=== PATIENT | female | born 1945 | race Two or more races ===

== ENCOUNTER 2017-12-28 09:56 | Outpatient (CLI) | payer MEDICARE, BC ==
[2017-12-28 11:12] LABS: CHOLESTEROL 175 mg/dL (<200); HDL CHOLESTEROL 57 mg/dL (40-60); LDL 103 mg/dL (0-99); TRIGLYCERIDES 105 mg/dL (30-150)
== END 2017-12-28 23:59 | disposition home or self-care (01) ==
LOC: CARD 09:56
PROVIDERS: ATTEND Internal Medicine Cardiovascular Disease
DX: I73.9 Peripheral vascular disease, unspecified (principal)
CPT/HCPCS: 36415; 80061-TC

== ENCOUNTER 2018-01-02 08:52 | Outpatient (CLI) | payer MEDICARE, BC ==
[2018-01-02 09:15] LABS: CALCIUM, SERUM 8.9 mg/dL (8.5-10.1); CARBON DIOXIDE 29 mmol/L (21-32); CHLORIDE 99 mmol/L (98-107); GLUCOSE 145 mg/dL (74-106); POTASSIUM 4.2 mmol/L (3.5-5.1); SODIUM SERUM 135 mmol/L (136-145); UREA NITROGEN, BLOOD 25 mg/dL (7-18)
[2018-01-02] MEDS ORDERED: CT SWABBABLE VALVE TRANS SET 1 EA INFUS.SET MC ONE (10:05)
[2018-01-02] MEDS ORDERED: IV NS 0.9% 500 ML IV ONE (10:05)
[2018-01-02] MEDS ORDERED: IOHEXOL-350 100 ML VIAL IV ONE (10:05)
== END 2018-01-02 23:59 | disposition home or self-care (01) ==
LOC: CT 08:52
PROVIDERS: ATTEND Internal Medicine Cardiovascular Disease
DX: I73.9 Peripheral vascular disease, unspecified (principal); I10 Essential (primary) hypertension; N28.1 Cyst of kidney, acquired
CPT/HCPCS: 36415; 75635; 80048; J7040; Q9967

== ENCOUNTER 2020-03-22 10:18 | Outpatient (CLI) | payer MEDICARE, BC | END 2020-03-22 23:59 | disposition home or self-care (01) | LOC: CARD 10:18 | PROVIDERS: ATTEND Internal Medicine Interventional Cardiology | DX: I65.22 Occlusion and stenosis of left carotid artery (principal); R09.89 Other specified symptoms and signs involving the circulatory and respiratory systems | CPT/HCPCS: 93880-TC ==

== ENCOUNTER → 2021-11-24 | Emergency (ER) | payer MEDICARE, BC ==
[~2021-11-24] VITALS: Ht 160 cm; Wt 64.4 kg
[~2021-11-24] MED LIST: AZIT250T13 PO; AZITHROMYCIN 250 MG TABLET ONE; AZITHROMYCIN 250 MG TABLET PO ONE; CT SWABBABLE VALVE TRANS SET 1 EA INFUS.SET MC ONE; IOHEXOL-300 100 ML VIAL IV ONE; IV LR 1000 ML 1,000 ML IV ONE; IV NS 0.9% 1,000 ML BAG IV ONE; PIPERACILLIN /TAZOBACTAM 3.375 G in IV D5W 50 ML IV ONE; POTASSIUM CHLORIDE 20 MEQ TAB.PRT.SR PO ONE
--- NOTE | 2021-11-24 21:33 | NUR ---
BLOOD WORK COLLECTED AND SENT TO LAB
--- NOTE | 2021-11-24 21:36 | NUR ---
URINE COLLECTED AND SENT TO LAB
[2021-11-24 21:55] LABS: ALBUMIN 3.1 g/dL (3.4-5.0); BILIRUBIN,DIRECT 0.1 mg/dL (0.0-0.2); BILIRUBIN,TOTAL 0.3 mg/dL (0.2-1.0); CALCIUM, SERUM 9.4 mg/dL (8.5-10.1); CREATININE 1.2 mg/dL (0.6-1.3)
[2021-11-24 22:04] LABS: POTASSIUM 2.8 mmol/L (3.5-5.1)
[2021-11-24 22:05] LABS: TOTAL PROTEIN, SERUM 6.9 g/dL (6.4-8.2)
[2021-11-24 22:14] LABS: BASOPHILS # (AUTO) 0.1 K/uL (0.0-0.2); BASOPHILS % (AUTO) 0.4 % (0.0-2.0); EOSINOPHILS % (AUTO) 0.5 % (0.0-6.0); HEMATOCRIT 44 % (33-45); HEMOGLOBIN 14.9 g/dL (11.5-14.8); LYMPHOCYTES # (AUTO) 2.6 K/uL (0.8-4.8); LYMPHOCYTES % (AUTO) 15.8 % (20.0-44.0); MEAN CORPUSCULAR HGB CONC 34 g/dl (31.0-36.0); MEAN CORPUSCULAR VOLUME 89 fL (82-100); MONOCYTES # (AUTO) 1.5 K/uL (0.1-1.30); MONOCYTES % (AUTO) 9.2 % (2.0-12.0); NEUTROPHILS # (AUTO) 12.1 K/uL (1.8-8.9); NEUTROPHILS % (AUTO) 74.1 % (43.0-81.0); PLATELET COUNT (AUTO) 297 K/uL (150-450); RED BLOOD CELL COUNT(AUTO) 4.88 MIL/uL (4.0-5.2); WHITE BLOOD COUNT (AUTO) 16.4 K/uL (4.3-11.0)
[2021-11-24 23:03] VITALS: BP 121/74
--- NOTE | 2021-11-25 00:03 | NUR ---
Patient discharged to home in stable condition. Rx and Written and verbal after care instructions given. Patient verbalizes understanding of instruction.
== END | disposition home or self-care (01) ==
LOC: ER 20:39
DX: R19.7 Diarrhea, unspecified (principal); E11.9 Type 2 diabetes mellitus without complications; R10.84 Generalized abdominal pain; D72.829 Elevated white blood cell count, unspecified; E87.6 Hypokalemia; I10 Essential (primary) hypertension; E78.5 Hyperlipidemia, unspecified; Z79.899 Other long term (current) drug therapy
CPT/HCPCS: 36415; 74177; 80048; 80076; 83605; 83690; 85025; 87040 ×2; 96360; 96361; 99285; J7120 ×2; Q9967